=== PATIENT | female | born 1990 | race Hispanic/Latino ===

== ENCOUNTER 2025-05-31 00:30 | Emergency (ER) | payer BC ==
[~2025-05-31] VITALS: Ht 162.6 cm; Wt 61.2 kg
--- NOTE | 2025-05-31 00:38 | NUR ---
UA CUP PROVIDED
--- NOTE | 2025-05-31 01:00 | ERN ---
General Chief Complaint: Chest Pain Stated Complaint: CP Time Seen by MD: 00:36 History of Present Illness Initial Comments 35-year-old female here for evaluation of chest pain. Chest pain has been intermittent for the past one year however worsened over the past 48 hours. Usually she states it goes away by itself however she was concerned as yesterday did not go away. 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 She also admits to taking cocaine in the past week. She has not seen a primary care doctor for this. Allergies: Coded Allergies: No Known Allergies (Unverified Allergy, Unknown, 05/31/25) Past Medical History Past Medical History: Asthma Past Surgical History: None Cardiovascular: (+) chest pain Genitourinary: (+) pain Review of Systems: was completed, & the rest were negative. Physical Exam Physical Exam Dictation GENERAL APPEARANCE NAD, activity normal for age, well developed/ well nourished, no cyanosis, pallor, or diaphoresis. EYES lids/conjunctiva normal. EARS/NOSE/THROAT Mucous membranes moist, nares normal, lips/teeth normal uvula midline without oral pharyngeal erythema, exudate or swelling TMs normal bilaterally. No lymphangitis/lymphedema. HEAD/NECK normocephalic atraumatic, no facial trauma, neck is supple. RESPIRATORY respiratory effort normal, speaks in full sentences, no tripod position, no accessory muscle use. Lungs clear to auscultation without rhonchi, wheezes, rales CARDIAC Regular rate and rhythm, no edema. ABDOMINAL Soft, ND/NT. No evidence of fluid wave. No pulsatile masses on exam, rebound tenderness, Mustafa sign or pain over Mcburney's point. MUSCLES/EXTREMITIES No abnormal range of motion, no swelling. SKIN Warm, pink and dry. No rashes, dermatoses, petechiae or lesions. NEUROLOGICAL Speech is clear and appropriate. Normal level of consciousness. Gait and coordination are normal. 5/5 strength in all extremities. PSYCH Normal mood and affect. Judgement/competence is appropriate Results Laboratory and Microbiology Lab and Micro Result Laboratory Tests Test 05/31/25 00:47 05/31/25 01:54 White Blood Count 13.0 K/uL (4.8-10.8) H Red Blood Count 4.09 MIL/uL (4.00-5.50) Hemoglobin 13.9 g/dL (12.0-16.0) Hematocrit 40.7 % (36-48) Mean Corpuscular Volume 99.5 fL (79-99) H Mean Corpuscular Hemoglobin 34.0 pg (27.0-33.0) H Mean Corpuscular Hemoglobin Concent 34.2 g/dL (32.0-36.0) Red Cell Distribution Width 12.0 % (11.0-15.5) Platelet Count 406 K/uL (130-400) H Mean Platelet Volume 9.2 fL (7.5-10.5) Immature Granulocyte % (Auto) 0.3 % (0-1) Neutrophils (%) (Auto) 57.4 % (40.0-77.0) Lymphocytes (%) (Auto) 28.9 % (21.0-51.0) Monocytes (%) (Auto) 6.5 % (3.0-13.0) Eosinophils (%) (Auto) 5.9 % (0.0-8.0) Basophils (%) (Auto) 1.0 % (0.0-5.0) Neutrophils # (Auto) 7.5 K/uL (1.8-7.7) Lymphocytes # (Auto) 3.8 K/uL (1.0-4.8) Monocytes # (Auto) 0.9 K/uL (0.1-1.0) Eosinophils # (Auto) 0.76 K/uL (0.00-0.70) H Basophils # (Auto) 0.13 K/uL (0.00-0.20) Absolute Immature Granulocyte (auto 0.04 K/uL (0-1) Nucleated Red Blood Cells 0.0 % (0.0-0.19) Sodium Level 138 mmol/L (136-145) Potassium Level 3.2 mmol/L (3.5-5.1) L Chloride Level 101 mmol/L (101-111) Carbon Dioxide Level 25 mmol/L (21-32) Blood Urea Nitrogen 12 mg/dL (7-18) Creatinine 0.8 mg/dL (0.5-1.0) Glomerular Filtration Rate Calc 98 mL/min (>90) Random Glucose 95 mg/dL (70-105) Total Calcium 8.8 mg/dL (8.5-10.1) Troponin I High Sensitivity < 4 ng/L (4-50) L Serum Test, Qualitative NEGATIVE (NEGATIVE) Urine Color YELLOW (YELLOW) Urine Appearance CLOUDY (CLEAR) H Urine pH 6.0 (5.0-8.0) Urine Specific [place] 1.032 (1.001-1.031) Urine Protein 10 mg/dL (NEGATIVE) H Urine Glucose (UA) NEGATIVE mg/dL (NEGATIVE) Urine Ketones 10 mg/dL (NEGATIVE) H Urine Occult Blood SMALL (NEGATIVE) H Urine Nitrate NEGATIVE (NEGATIVE) Urine Bilirubin NEGATIVE mg/dL (NEGATIVE) Urine Urobilinogen 0.2 mg/dL (0.2-1.0) Urine Leukocyte Esterase 500 Narciso/uL (NEGATIVE) H Urine RBC 6-10 /HPF (0-1) H Urine WBC 6-10 /HPF (0-1) H Urine Squamous Epithelial Cells MANY /HPF (0-2) Urine Bacteria RARE /HPF (None Seen) EKG/XRAY/US/CT/MRI EKG: (+) NSR, (+) rhythm (Normal sinus), (+) VA, (+) QRS (101); (-) ST depression, (-) ST elevation MDM 35-year-old female here for evaluation of intermittent nonradiating chest pain. We will get cardiac workup and reassess. Disposition pending results of labs and imaging. ED Course Orders Procedure Category Date Status Time Basic Metabolic Panel LAB 05/31/25 Complete 00:37 Cbc With Differential LAB 05/31/25 Complete 00:37 Drug Screen Urine LAB 05/31/25 In Process 00:37 Urinalysis Profile LAB 05/31/25 In Process 00:37 Troponin I High LAB 05/31/25 Complete Sensitivity 00:37 Testing, LAB 05/31/25 Complete Serum Hcg 00:37 12 Lead Ekg Tracing- EKG 05/31/25 Logged Technical 00:37 Potassium Bicarb/Cit PHA 05/31/25 Complete Ac 25meq (K-Lyte Ta 02:00 Culture Urine ROSEMARY 05/31/25 In Process 02:40 Ceftriaxone 1g Vial PHA 05/31/25 Transmitted (Rocephine 1g Inj) 03:30 Current Medications Medications (Trade) Dose Ordered Sig/Chiqui Route PRN Reason Start Time Stop Time Status Last Admin Dose Admin Potassium Bicarbonate (K-Lyte Tablet Eff 25 Meq Tablet.eff) 50 meq ONCE ONCE PO 05/31/25 02:00 05/31/25 02:01 DC 05/31/25 01:56 Vital Signs Date Time Temp Pulse Resp B/P (MAP) Pulse Ox O2 Delivery O2 Flow Rate FiO2 05/31/25 01:56 98.2 78 13 149/84 100 Room Air* 0 21 05/31/25 00:36 97.9 77 18 157/95 99 Room Air HEART Score Response (Comments) Value History: Low suspicion (0) 0 EKG: Normal 0 Age: < 45yrs (0) 0 Risk Factors: No known risk factors (0) 0 Initial Troponin: Normal limit (0) 0 HEART Score Risk: Low Risk for MACE (1-3) Total 0 DX & DISP Disposition: Discharge Departure Impression: Primary Impression: UTI (urinary tract infection) Additional Impressions: Hypokalemia, Chest pain Condition: Stable Referrals: SELF,REFERRAL (PCP) OLIVIA DODSON MD May 31, 2025 01:00
[2025-05-31 01:04] LABS: IMMATURE GRANULOCYTE ABSOLUTE 0.04 K/uL (0-1); NUCLEATED RED BLOOD CELLS 0.0 % (0.0-0.19); PLATELET COUNT (AUTO) 406 K/uL (130-400); RED BLOOD CELL COUNT(AUTO) 4.09 MIL/uL (4.00-5.50); RED CELL DISTRIBUTION WIDTH 12.0 % (11.0-15.5); WHITE BLOOD COUNT (AUTO) 13.0 K/uL (4.8-10.8)
[2025-05-31 01:06] LABS: CREATININE 0.8 mg/dL (0.5-1.0); GLOMERULAR FILTR. RATE CALC 98.0 mL/min (>90); GLUCOSE,RANDOM 95.0 mg/dL (70-105); SODIUM SERUM 138.0 mmol/L (136-145); UREA NITROGEN, BLOOD 12.0 mg/dL (7-18)
--- NOTE | 2025-05-31 01:17 | NUR ---
unable to collect a sample. went prior to traige per pt
--- NOTE | 2025-05-31 01:20 | NUR ---
REPORT TO MURTAZA SANTIAGO
--- NOTE | 2025-05-31 01:29 | NUR ---
PT CARE ASSUMED AT THIS TIME
[2025-05-31 01:56] VITALS: TEMP 98.3
[2025-05-31 02:18] LABS: APPEARANCE,URINE CLOUDY (CLEAR); GLUCOSE, URINE (UA) NEGATIVE (NEGATIVE); LEUKOCYTE ESTERASE ,URINE 500 Leu/uL (NEGATIVE); NITRATE,URINE NEGATIVE (NEGATIVE); OCCULT BLOOD,URINE SMALL (NEGATIVE)
[2025-05-31 02:40] LABS: ADD UA MICROSCOPIC YES
[2025-05-31 02:42] LABS: SQUAMOUS EPITHELIAL CELL,UR MANY /HPF (0-2)
[2025-05-31] MEDS ORDERED: ALBU18HF7 IH (03:26)
[2025-05-31] MEDS ORDERED: CEPH500T PO (03:26)
[2025-05-31 03:51] VITALS: BP 135/89; PULSE 85; RESP 14; O2SAT 99
[2025-05-31 04:20] LABS: AMPHET/METH SCREEN,URINE NEGATIVE (NEGATIVE); BARBITURATE SCREEN, URINE NEGATIVE (NEGATIVE); CANNABINOID SCREEN,URINE NEGATIVE (NEGATIVE); COCAINE SCREEN,URINE POSITIVE (NEGATIVE)
--- NOTE | 2025-05-31 06:06 | EKG ---
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
== END 2025-05-31 03:57 | disposition home or self-care (01) ==
LOC: EDH 00:30
DX: N39.0 Urinary tract infection, site not specified (principal); E87.6 Hypokalemia; R07.89 Other chest pain; J45.909 Unspecified asthma, uncomplicated; Z79.899 Other long term (current) drug therapy
CPT/HCPCS: 99284; 84484; 80048; 80305; 84703; 85025; 87086; 36415; 96372; 93005; 81001; J0696

== ENCOUNTER 2025-06-26 18:45 | Emergency (ER) | payer BC ==
[~2025-06-26] VITALS: Ht 162.6 cm; Wt 63.5 kg
[~2025-06-26 18:45] MED LIST: ALBU18HF7 IH; CEPH500T PO
[2025-06-26 18:46] VITALS: BP 116/72; PULSE 89; RESP 20; TEMP 99.2
[2025-06-26 19:10] LABS: IMMATURE GRANULOCYTE ABSOLUTE 0.04 K/uL (0-1); NUCLEATED RED BLOOD CELLS 0.0 % (0.0-0.19); PLATELET COUNT (AUTO) 348 K/uL (130-400); RED BLOOD CELL COUNT(AUTO) 4.22 MIL/uL (4.00-5.50); RED CELL DISTRIBUTION WIDTH 12.0 % (11.0-15.5); WHITE BLOOD COUNT (AUTO) 8.3 K/uL (4.8-10.8)
[2025-06-26 19:19] LABS: CREATININE 0.8 mg/dL (0.5-1.0); GLOMERULAR FILTR. RATE CALC 98.0 mL/min (>90); GLUCOSE,RANDOM 110.0 mg/dL (70-105); SODIUM SERUM 137.0 mmol/L (136-145); UREA NITROGEN, BLOOD 8.0 mg/dL (7-18)
[2025-06-26 19:23] LABS: ASPARTATE AMINOTRANSFERASE 25.0 U/L (10-37); TOTAL PROTEIN, SERUM 7.5 g/dL (6.0-8.3)
--- NOTE | 2025-06-26 20:50 | NUR ---
CALLED IN ER LOBBY, NO ANSWER
--- NOTE | 2025-06-26 20:55 | NUR ---
CALLED IN ER LOBBY, NO ANSWER
--- NOTE | 2025-06-26 21:01 | NUR ---
PATIENT CALLED IN ER LOBBY, NO ANSWER
== END 2025-06-26 21:02 | disposition left against medical advice (07) ==
LOC: EDH 18:45
DX: R10.9 Unspecified abdominal pain (principal); Z53.21 Procedure and treatment not carried out due to patient leaving prior to being seen by health care provider
CPT/HCPCS: 36415; 80053; 83690; 83735; 84484; 84703; 85025; 99281